=== PATIENT | male | born 1965 | race African-American/Black ===

== ENCOUNTER 2021-01-22 22:59 | Emergency (ER) | payer SELFPAY ==
[~2021-01-22] VITALS: Ht 167.6 cm; Wt 68.0 kg
[2021-01-22 23:04] VITALS: BP 165/95
[2021-01-23] MEDS ORDERED: IBUPROFEN 600MG TABLET PO ONE (01:00)
[2021-01-23] MEDS ORDERED: AMOX-424 MT (01:04)
== END 2021-01-23 03:07 | disposition home or self-care (01) ==
LOC: ER 22:59
DX: M84.48XA Pathological fracture, other site, initial encounter for fracture (principal); K04.7 Periapical abscess without sinus
CPT/HCPCS: 99283